=== PATIENT | female | born 1970 | race Caucasian/White ===

== ENCOUNTER 2017-05-28 22:56 | Emergency (ER) | payer MEDICAID, OTHER ==
--- NOTE | 2017-05-29 03:25 | ED Physician Chart ---
ED Chief Complaint/HPI - Patient Information Date Seen:: 05/28/17 Time Seen:: 23:00 Chief Complaint:: Chest pain History of Present Illness:: Chest pain 1 day duration localized small area, left peristernal, radiating to the left breast. No pmh or dvt or pe or cad. Equivocal palpatations. No report of hemoptysis. Allergies:: Allergies Allergy/AdvReac Type Severity Reaction Status Date / Time Penicillins Allergy Verified 05/28/17 23:12 Vitals:: Vital Signs - 8 hr 05/28/17 05/29/17 23:17 00:55 Temp 97.9 F 98.0 F HR 85 85 RR 18 18 BP 130/71 116/81 O2 Sat % 98 98 Historian:: Patient Review:: Nurse's Note Reviewed ED Review of Systems - Review of Systems General/Constitutional: No fever Skin: No skin lesions Head: Headache, No headache Eyes: No loss of vision ENT: No earache Neck: No neck pain Cardio Vascular: Chest pain, Palpitations, No PND, No orthopnea, No edema Pulmonary: SOB, Cough, No sputum, No wheezing GI: No nausea, No vomiting, No diarrhea, No pain G/U: No dysuria 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: Other (No sign of ) Musculoskeletal: No bone or joint pain Endocrine: Polyuria Psychiatric: Anxiety Hematopoietic: No bruising Neurological: No syncope, No weakness ED Past Medical History - Past Medical History Past Medical History: DM, Dyslipidemia Family History: None Social History: Non Smoker, Alcohol (social alcohol use ), No Drug Use, Surgical History: None Psychiatricy History: Other (chronic anxiety) Medication: Reviewed Medication Reviewed:: Metformin Family Medical History - Family Member Mother History Unknown: Yes ED Physical Exam - Physical Examination General/Constitutional: Awake, Alert, No distress, Non-toxic appearing, Ambulatory Head: Atraumatic Eyes: Lids, conjuctiva normal Skin: Nl inspection ENMT: External ears, nose nl Neck: Nontender Respiratory: Nl effort/Exclusion Cardio Vascular: RRR, No murmur, gallop, rubs, NL S1 S2, Carotid/Femoral/Distal pulses equal bilaterally GI: No tenderness/rebounding/guarding : No CVA tenderness Extremities: No tenderness or effusion Neuro/Psych: Alert/oriented Misc: Normal back ED Labs/Radiology/EKG Results - Lab Results Results: Laboratory Tests 05/28/17 05/29/17 23:42 00:25 Troponin I < 0.01 L Urine Test NEGATIVE - Radiology Results Results: Chest x-ray obtained, no pneumothorax, no sign of CHF. - EKG Interpretations Comments:: 2 consecutive poor R wave EKGs, unchanged, NON-ACUTE ED Assessment - Assessment General Assessment: Atypical chest pain, non TN. No pneumothorax, low probability PE. Reduplication of sharp pain with palpation. This condition life threatening/high prob of deterioration: No ED Septic Shock - . Is Septic Shock (SBP<90, OR Lactate>4 mmol\L) present?: No - <6hrs of presentation: Vital Signs: Vital Signs - 8 hr 05/28/17 05/29/17 23:17 00:55 Temp 97.9 F 98.0 F HR 85 85 RR 18 18 BP 130/71 116/81 O2 Sat % 98 98 ED Reassessment (Disposition) - Reassessment Reassessment Condition:: Unchanged - Diagnosis Diagnosis:: Atypical chest pain - Aftercare/Follow up Instructions Aftercare/Follow-Up Instructions:: Counseled pt regarding lab results/diagnosis & need follow up, Refer to Discharge Instructions, Counseled pt & family regarding lab results/diagnosis & need follow up - Patient Disposition Discharge/Transfer:: Home Time:: 00:30 ED Discharge Plan - Patient Disposition Admit/Discharge/Transfer: PT DISCHARGED HOME Condition at Disposition: Unchanged Instructions: Costochondritis, [id number], Chest Wall Pain, [id number] Additional Instructions: FOLLOW UP WITH YOUR [facility] DOCTOR TOMORROW.
--- NOTE | 2017-05-29 08:33 | Diagnostic Imaging Report ---
CHEST X-RAY: AP view INDICATION: pain COMPARISON: None FINDINGS: There is no focal consolidation or pleural effusions The heart is normal in size. The osseous structures demonstrate no acute abnormalities. IMPRESSION: No focal consolidation identified.
== END 2017-05-29 00:55 | disposition home or self-care (01) ==
LOC: ER 22:56
DX: R07.89 Other chest pain (principal); E11.9 Type 2 diabetes mellitus without complications; E78.5 Hyperlipidemia, unspecified
CPT/HCPCS: 36415-UA; 71010-TC; 81025-TC; 84484-TC; 93005